=== PATIENT | female | born 1990 | race Caucasian/White ===

== ENCOUNTER 2023-03-08 12:35 | Outpatient (CLI) | payer BC, SELFPAY ==
--- NOTE | 2023-03-08 | ECG_ITS ---
Measurements Intervals [place] Rate: 63 P: 25 [place]: 147 QRS: 24 QRSD: 99 T: 9 QT: 445 QTc: 457 Interpretive Statements SINUS RHYTHM NORMAL ELECTROCARDIOGRAM NO PREVIOUS ECG AVAILABLE FOR COMPARISON Electronically Signed On 03-08-2023 17:18:19 CDT by Chase Bess M.D.
== END 2023-03-08 12:36 | disposition home or self-care (01) ==
PROVIDERS: Visit Provider Nurse Practitioner
DX: E66.9 Obesity, unspecified (principal)
CPT/HCPCS: 93005